=== PATIENT | female | born 1940 | race Caucasian/White ===

== ENCOUNTER 2018-06-12 11:38 | Observation (INO) ==
--- NOTE | 2018-06-12 12:20 | ED ---
HPI General Chief Complaint: Chest Pain Stated Complaint: Chest Complaint/Doctor Sent Time Seen by Provider: 06/12/18 11:53 Source: patient Mode of arrival: ambulatory Limitations: no limitations History of Present Illness HPI narrative: The patient denies any paroxysmal nocturnal dyspnea or orthopnea, has been sleeping in bed on 2 pillows, has not been sleeping in the recliner.The patient is a 78-year-old female who presents to the emergency department via private vehicle for shortness of breath and chest pain. The patient was sent from her inner tube inserter's office, Dr. Loredo, for evaluation of exertional shortness of breath and chest pain. The patient states she has had increasing shortness of breath for the last 3 weeks which is exertional. The patient now notes chest discomfort located over the substernal aspect of her chest, described as pressure and heaviness, that is worse with exertion. The patient was seen by her inner tube inserter administered nitroglycerin sublingual prior to arrival, however, that did not alleviate her symptoms. The patient does have a history of aortic stenosis as well as cardiomyopathy with an EF of approximately 30%. The patient denies any known history of pulmonary embolism or DVT, does have a family history with her mother having a pulmonary embolism. The patient denies any recent hospitalizations, prolonged travel, or recent surgeries. Symptoms are moderate, progressive, and worse with exertion. MD complaint: Reports chest pain STEMI Alert: No Onset (ago): day(s) Duration: intermittent Onset: during rest Pain location: Reports substernal Severity: moderate Severity scale (1-10): 5 Quality: Reports tightness Pain radiation: Reports none Relieving factors: nothing Exacerbating factors: exertion Associated symptoms: Reports dyspnea Treatments prior to arrival chest pain: Reports nitroglycerin Related Data Home Medications Medication Instructions Recorded Confirmed Advil PM 200 mg ONCE HS 06/12/18 06/12/18 Vitamin B-12 1,000 mcg DAILY 06/12/18 06/12/18 fexofenadine [Arely Allergy] 180 mg PO DAILY 06/12/18 06/12/18 melatonin 1 mg HS 06/12/18 06/12/18 omeprazole 20 mg PO DAILY 06/12/18 06/12/18 Allergies Allergy/AdvReac Type Severity Reaction Status Date / Time grass pollen Allergy Mild Sneezing Unverified 06/12/18 11:48 Review of Systems ROS: all other systems reviewed are negative REPLACED BY [facility] Medical History Medical History Asthma (Acute) Surgical History Surgical History H/O sinus surgery (Acute) Hx of cholecystectomy (Acute) Previous back surgery (Acute) Social History Social History Substance History: No History of Abuse Second Hand Smoke Exposure: No Smoking Status: Never smoker How Often Do You Have a Drink Containing Alcohol: Monthly or less Recent Travel in [facility] within the Last 8 Weeks: No Recent Out of Country Travel within the Last 8 Weeks: No Immunization History Tetanus Immunization: Unsure Exam Narrative Exam Narrative: GENERAL: Awake, alert, pleasant 78-year-old female who appears her stated age and is in no acute respiratory distress. SKIN: Focused skin assessment warm/dry. HEAD: Atraumatic. Normocephalic. EYES: Pupils equal and round. No scleral icterus. No injection or drainage. ENT: No nasal bleeding or discharge. Mucous membranes pink and moist. NECK: Trachea midline. No JVD. CARDIOVASCULAR: Regular rate and rhythm. Holosystolic murmur noted. RESPIRATORY: No accessory muscle use. Clear to auscultation. Breath sounds equal bilaterally. GASTROINTESTINAL: Abdomen soft, non-tender, nondistended. MUSCULOSKELETAL: No obvious deformities. No clubbing. No cyanosis. No edema. Calves are soft bilaterally. NEUROLOGICAL: Awake and alert. No obvious cranial nerve deficits. Motor grossly within normal limits. Normal speech. Nonfocal. PSYCHIATRIC: Appropriate mood and affect; insight and judgment normal. Course Initial Documented Vital Signs Temperature 98.9 F 06/12/18 11:42 Pulse Rate 87 06/12/18 11:42 Respiratory Rate 16 06/12/18 11:42 Blood Pressure 199/88 H 06/12/18 11:42 Pulse Oximetry 100 06/12/18 11:42 Last Documented Vital Signs Temperature 98.9 F 06/12/18 11:42 Pulse Rate 81 06/12/18 13:42 Respiratory Rate 17 06/12/18 13:42 Blood Pressure 182/79 H 06/12/18 13:42 Pulse Oximetry 98 06/12/18 13:42 Medical Decision Making [facility] Narrative Medical decision making narrative: IV was established, labs are drawn and sent, and the patient was placed on cardiac telemetry monitoring and continuous pulse oximetry monitoring. EKG was ordered and interpreted. Chest x-ray was obtained. The patient received aspirin and Nitropaste. BNP was sent to lab. Troponin and CPK were sent to lab. The patient's troponin and CPK were unremarkable. BNP was minimally elevated. Chest x-ray reveals no acute pulmonary edema. The patient does have exertional dyspnea, may be ACS versus aortic stenosis with her history. Therefore, patient will be a 23-hour observation to medicine, may benefit from a consultation with her inner tube inserter, Dr. Loredo, as well as echocardiogram to evaluate ejection fraction and aortic stenosis as well as a nuclear medicine myocardial perfusion scan. The patient is comfortable with this plan of care and disposition. The patient's primary physician is Dr. John Mercer, [facility] Medical Screen Exam Complete: Yes Emergency Medical Condition: Yes Differential Diagnosis Differential Diagnosis: Differential diagnosis includes aortic stenosis, cardiomyopathy, congestive heart failure, ACS, STEMI, pulmonary embolism, pleural effusion, pulmonary edema, pneumonia, deconditioning. Lab Data Lab results reviewed: Yes I reviewed the patient's lab results. Result diagrams: 06/12/18 12:10 06/12/18 12:10 Lab Results 06/12/18 06/12/18 06/12/18 Range/Units 12:10 12:10 12:10 WBC 6.7 (4.0-11.0) th/mm3 RBC 4.72 (4.00-5.30) mil/mm3 Hgb 14.0 (11.6-15.3) gm/dL Hct 42.5 (35.0-46.0) % MCV 89.9 (80.0-100.0) fL MCH 29.6 (27.0-34.0) pg MCHC 32.9 (32.0-36.0) % RDW 14.4 (11.6-17.2) % Plt Count 245 (150-450) th/mm3 MPV 8.1 (7.0-11.0) fL Neut % (Auto) 67.2 (16.0-70.0) % Lymph % (Auto) 20.4 (9.0-44.0) % [place] % (Auto) 8.0 (0.0-8.0) % Eos % (Auto) 3.7 (0.0-4.0) % Baso % (Auto) 0.7 (0.0-2.0) % Neut # (Auto) 4.5 (1.8-7.7) th/mm3 Lymph # (Auto) 1.4 (1.0-4.8) th/mm3 [place] # (Auto) 0.5 (0.0-0.9) th/mm3 Eos # (Auto) 0.2 (0.0-0.4) th/mm3 Baso # (Auto) 0.0 (0.0-0.2) th/mm3 WBC Differential . Differential Comment Auto diff final PT 10.1 (9.8-11.6) sec INR 1.0 Ratio APTT 27.7 (23.4-31.7) sec Sodium 142 (136-145) meq/L Potassium 3.8 (3.5-5.1) meq/L Chloride 106 (98-107) meq/L Carbon Dioxide 28.6 (21.0-32.0) meq/L Anion Gap 7 (5-15) meq/L BUN 13 (7-18) mg/dL Creatinine 0.66 (0.50-1.00) mg/dL Estimated GFR 87 L (>89) mL/min Random Glucose 91 (74-106) mg/dL Calcium 8.4 L (8.5-10.1) mg/dL Magnesium 2.1 (1.5-2.5) mg/dL Total Bilirubin 0.3 (0.2-1.0) mg/dL AST 15 (15-37) U/L ALT 24 (10-53) U/L Alkaline Phosphatase 89 (45-117) U/L Total Creatine Kinase 49 (26-192) U/L Troponin I Less than 0.02 L (0.02-0.05) ng/mL B-Natriuretic Peptide (0-100) pg/mL Total Protein 8.1 (6.4-8.2) g/dL Albumin 3.9 (3.4-5.0) g/dL Lipase 130 (73-393) U/L 06/12/18 06/12/18 Range/Units 12:10 12:10 WBC (4.0-11.0) th/mm3 RBC (4.00-5.30) mil/mm3 Hgb (11.6-15.3) gm/dL Hct (35.0-46.0) % MCV (80.0-100.0) fL MCH (27.0-34.0) pg MCHC (32.0-36.0) % RDW (11.6-17.2) % Plt Count (150-450) th/mm3 MPV (7.0-11.0) fL Neut % (Auto) (16.0-70.0) % Lymph % (Auto) (9.0-44.0) % [place] % (Auto) (0.0-8.0) % Eos % (Auto) (0.0-4.0) % Baso % (Auto) (0.0-2.0) % Neut # (Auto) (1.8-7.7) th/mm3 Lymph # (Auto) (1.0-4.8) th/mm3 [place] # (Auto) (0.0-0.9) th/mm3 Eos # (Auto) (0.0-0.4) th/mm3 Baso # (Auto) (0.0-0.2) th/mm3 WBC Differential Differential Comment PT (9.8-11.6) sec INR Ratio APTT (23.4-31.7) sec Sodium (136-145) meq/L Potassium (3.5-5.1) meq/L Chloride (98-107) meq/L Carbon Dioxide (21.0-32.0) meq/L Anion Gap (5-15) meq/L BUN (7-18) mg/dL Creatinine (0.50-1.00) mg/dL Estimated GFR (>89) mL/min Random Glucose (74-106) mg/dL Calcium (8.5-10.1) mg/dL Magnesium Cancelled (1.5-2.5) mg/dL Total Bilirubin (0.2-1.0) mg/dL AST (15-37) U/L ALT (10-53) U/L Alkaline Phosphatase (45-117) U/L Total Creatine Kinase (26-192) U/L Troponin I (0.02-0.05) ng/mL B-Natriuretic Peptide 243 H (0-100) pg/mL Total Protein (6.4-8.2) g/dL Albumin (3.4-5.0) g/dL Lipase (73-393) U/L Imaging Data Radiologist's impression: Chest X-Ray 06/12/18 12:11 CONCLUSION: No acute cardiopulmonary disease. ECG Data EKG Prior to Arrival: No Attestation: I personally reviewed and interpreted this ECG as follows: Interpretation: EKG reveals sinus rhythm with a rate 86. Left bundle branch block. Compared to EKG tracing on June 12, 2016, left bundle branch block is not acute. Discharge Plan Discharge Disposition Patient Disposition: 30 Still Patient Discharge Condition Condition: Stable Discharge Details Diagnosis: Exertional dyspnea, Chest pain, Aortic stenosis Physicians Team ED Provider: Reddy Webster Primary Care Provider: John Mercer Rxs /Orders / Referrals /Forms Prescriptions: No Action fexofenadine [Arely Allergy] 180 mg Tablet 180 mg PO DAILY RF: 0 Vitamin B-12 1,000 mcg DAILY RF: 0 Advil PM 200 mg ONCE HS RF: 0 melatonin 1 mg Tablet 1 mg HS RF: 0 omeprazole 20 mg Capsule,Delayed Release(Dr/Ec) 20 mg PO DAILY RF: 0 Discharge Instructions Patient Printed Instructions: Chest Pain (ED) Discharge Interventions Interventions: Vital Signs Last Done: 06/12/18 11:48 Status ED Status: Admitted Observation Patient
--- NOTE | 2018-06-12 12:40 | XR ---
EXAM DATE: 06/12/2018 12:31 PM EST AGE/SEX: 78 years / Female INDICATIONS: Chest pain and tightness. CLINICAL DATA: This is the patient's initial encounter. Patient reports that signs and symptoms have been present for 1 day and indicates a pain score of 6/10. MEDICAL/SURGICAL HISTORY: . Gastroesophageal reflux disease. Asthma. Arthritis. Left femur frac ture. . Cholecystectomy. Left femur repair. Cataract removal. Sinus surgery. Lipoma removal. COMPARISON: [facility] [place], CHEST PA & LAT, 06/14/2016. . FINDINGS: Lungs are clear. Slight cardiomegaly seen. Thoracic scoliosis has not changed. CONCLUSION: No acute cardiopulmonary disease. Electronically signed by: Dayami Gamez MD 06/12/2018 12:39 PM EST
[2018-06-12 12:42] LABS: Baso % (Auto) 0.7 % (0.0-2.0); Eos # (Auto) 0.2 th/mm3 (0.0-0.4); Eos % (Auto) 3.7 % (0.0-4.0); Hematocrit 42.5 % (35.0-46.0); Lymph # (Auto) 1.4 th/mm3 (1.0-4.8); Lymph % (Auto) 20.4 % (9.0-44.0); Mean Corpuscular HGB Conc 32.9 % (32.0-36.0); Mean Corpuscular Hemoglobin 29.6 pg (27.0-34.0); Mean Corpuscular Volume 89.9 fL (80.0-100.0); Mean Platelet Volume 8.1 fL (7.0-11.0); Mono # (Auto) 0.5 th/mm3 (0.0-0.9); Neut # (Auto) 4.5 th/mm3 (1.8-7.7); Neut % (Auto) 67.2 % (16.0-70.0); Platelet Count 245 th/mm3 (150-450); Red Blood Count 4.72 mil/mm3 (4.00-5.30); Red Cell Distribution Width 14.4 % (11.6-17.2); White Blood Count 6.7 th/mm3 (4.0-11.0)
[2018-06-12 12:46] LABS: Activated Partial Thrombo Time 27.7 sec (23.4-31.7); Prothrombin Time 10.1 sec (9.8-11.6)
[2018-06-12 12:48] LABS: Alanine Aminotransferase 24 U/L (10-53); Albumin 3.9 g/dL (3.4-5.0); Anion Gap 7 meq/L (5-15); Aspartate Aminotransferase 15 U/L (15-37); Blood Urea Nitrogen 13 mg/dL (7-18); Calcium 8.4 mg/dL (8.5-10.1); Carbon Dioxide 28.6 meq/L (21.0-32.0); Chloride 106 meq/L (98-107); Glomerular Filtration Rate 87 mL/min (>89); Glucose,Random 91 mg/dL (74-106); Lipase 130 U/L (73-393); Magnesium 2.1 mg/dL (1.5-2.5); Potassium 3.8 meq/L (3.5-5.1); Sodium 142 meq/L (136-145)
[2018-06-12 12:52] LABS: Alkaline Phosphatase 89 U/L (45-117); Total Protein 8.1 g/dL (6.4-8.2)
[2018-06-12 12:54] LABS: Creatine Kinase 49 U/L (26-192)
--- NOTE | 2018-06-12 15:26 | P.HP ---
History of Present Illness Primary Care Physician: John Mercer MD History of Present Illness: 78-year-old white female being admitted for exertional dyspnea, referred to the emergency department by her patent clerk today. Case discussed with ER physician. Patient was in her usual state of health until about 1 month ago when she had a bout of intense lightheadedness at [place] when she spun around to talk to someone. Since then she has had some lingering lightheadedness here and there but more concerning she has had exertional dyspnea which has progressed in intensity. Says she used to be able to walk down to her driveway now she is unable to do that without having to stop to catch her breath. She even thinks that she has conversational dyspnea although she does not appear to have any difficulty talking to me at this time at the bedside. She said she went to her primary care doctor about a week and a half after the initial incident and had an echocardiogram performed the results of which she does not know in detail. She also reports having ultrasound of her neck done which apparently was okay as well. She saw cardiology for the first time today and was instructed to come to the emergency department in light of her worsening exertional dyspnea. Patient reports having a pressure-like feeling which she describes as also burning sensation but says it's no "painful." Says that she has a mild pain very intermittent only over the left pectoral region which worsens with deep inspiration. Patient was seen by patent clerk today and was advised to proceed to the emergency department, for possible acute ischemic workup. In the emergency department chest x-ray performed which which I independently reviewed which demonstrated scoliosis but no acute findings in the lung regalado. BNP is only in the 200s. Troponins are negative. EKG which I independently reviewed shows no acute findings concerning for ischemia or infarction, only left bundle. Review of Systems All other systems reviewed negative except as stated in HPI PMFSH - History History Provided By: Patient - Medical History Medical History: Medical History (Last Reviewed 06/12/18 @ 15:29 by Humble Gonzalez MD) Asthma - Surgical History Surgical History: Surgical History (Last Reviewed 06/12/18 @ 15:29 by Humble Gonzalez MD) H/O sinus surgery Hx of cholecystectomy Previous back surgery - Family History Family History: Family History (Last Updated 06/12/18 @ 15:29 by Humble Gonzalez MD) Mother DVT (deep venous thrombosis) - Social History I have reviewed the patient's Social History: Yes - Tobacco History Second Hand Smoke Exposure: No Smoking Status: Never smoker - Alcohol History How Often Do You Have a Drink Containing Alcohol: Monthly or less - Substance Use History Substance History: No History of Abuse - Travel History Recent Travel in the [place] Within the Last 8 Weeks: No Recent Travel Out of the Country Within the Last 8 Weeks: No - Immunization History Tetanus Immunization: Unsure Medications and Allergies Active Medications: Active Medications Sodium Chloride (Ns Flush) 2 ml IV.FLUSH UNSCH PRN PRN Reason: FLUSH AFTER USING IV ACCESS Allergies Allergy/AdvReac Type Severity Reaction Status Date / Time grass pollen Allergy Mild Sneezing Unverified 06/12/18 11:48 Home Medications Medication Instructions Recorded Confirmed Type Advil PM 200 mg ONCE HS 06/12/18 06/12/18 History Vitamin B-12 1,000 mcg DAILY 06/12/18 06/12/18 History fexofenadine [Arely Allergy] 180 mg PO DAILY 06/12/18 06/12/18 History melatonin 1 mg HS 06/12/18 06/12/18 History omeprazole 20 mg PO DAILY 06/12/18 06/12/18 History Exam Vital signs: Vital Signs 06/12/18 11:42 06/12/18 11:48 06/12/18 12:11 Temperature 98.9 F Pulse Rate 87 87 82 Respiratory Rate 16 18 Blood Pressure 199/88 H 211/98 H 191/84 H Pulse Oximetry 100 100 98 06/12/18 13:42 Temperature Pulse Rate 81 Respiratory Rate 17 Blood Pressure 182/79 H Pulse Oximetry 98 Intake & Output 06/11/18 06/12/18 06/12/18 18:59 06:59 18:59 Weight 78.925 kg Narrative: VS: afebrile GENERAL: Well-nourished elderly female, reclining in bed, no acute distress SKIN: Warm and dry. EYES: No scleral icterus. No injection or drainage. ENT: No nasal bleeding or discharge. Mucous membranes pink and moist. CARDIOVASCULAR: Regular rate and rhythm. no murmurs RESPIRATORY: No accessory muscle use. Clear to auscultation. Breath sounds equal bilaterally. GASTROINTESTINAL: Abdomen soft, non-tender, nondistended. Extremities: No clubbing, cyanosis, or edema. No obvious deformities. MUSCULOSKELETAL: adequate muscle bulk and tone for age and habitus. Has some left upper pectoral tenderness to palpation which he affirms is the only pain aspect she has had in her historical presentation. NEUROLOGICAL: Awake and alert. No obvious cranial nerve deficits. No facial droop nor slurred speech noted. PSYCHIATRIC: Appropriate mood and affect; insight and judgment normal. Results - Labs CBC & Chem 7: 06/12/18 12:10 06/12/18 12:10 Labs: Laboratory Results - last 24 hr 06/12/18 06/12/18 06/12/18 12:10 12:10 12:10 WBC 6.7 RBC 4.72 Hgb 14.0 Hct 42.5 MCV 89.9 MCH 29.6 MCHC 32.9 RDW 14.4 Plt Count 245 MPV 8.1 Neut % (Auto) 67.2 Lymph % (Auto) 20.4 [place] % (Auto) 8.0 Eos % (Auto) 3.7 Baso % (Auto) 0.7 Neut # (Auto) 4.5 Lymph # (Auto) 1.4 [place] # (Auto) 0.5 Eos # (Auto) 0.2 Baso # (Auto) 0.0 WBC Differential . Differential Comment Auto diff final PT 10.1 INR 1.0 APTT 27.7 Sodium 142 Potassium 3.8 Chloride 106 Carbon Dioxide 28.6 Anion Gap 7 BUN 13 Creatinine 0.66 Estimated GFR 87 L Random Glucose 91 Calcium 8.4 L Magnesium 2.1 Total Bilirubin 0.3 AST 15 ALT 24 Alkaline Phosphatase 89 Total Creatine Kinase 49 Troponin I Less than 0.02 L B-Natriuretic Peptide Total Protein 8.1 Albumin 3.9 Lipase 130 06/12/18 06/12/18 12:10 12:10 WBC RBC Hgb Hct MCV MCH MCHC RDW Plt Count MPV Neut % (Auto) Lymph % (Auto) [place] % (Auto) Eos % (Auto) Baso % (Auto) Neut # (Auto) Lymph # (Auto) [place] # (Auto) Eos # (Auto) Baso # (Auto) WBC Differential Differential Comment PT INR APTT Sodium Potassium Chloride Carbon Dioxide Anion Gap BUN Creatinine Estimated GFR Random Glucose Calcium Magnesium Cancelled Total Bilirubin AST ALT Alkaline Phosphatase Total Creatine Kinase Troponin I B-Natriuretic Peptide 243 H Total Protein Albumin Lipase - Imaging Impressions Chest X-Ray 06/12/18 12:11 CONCLUSION: No acute cardiopulmonary disease. Caprini VTE Risk Assessment Caprini VTE Risk Assessment: Moderate/High Risk (score >= 2) Caprini Risk Assessment Model: Point Value = 1 Point Value = 2 Point Value = 3 Point Value = 5 Age 41-60 Minor surgery BMI > 25 kg/m2 Swollen legs Varicose veins or History of unexplained or recurrent spontaneous Oral contraceptives or hormone replacement Sepsis (< 1 month) Serious lung disease, including pneumonia (< 1 month) Abnormal pulmonary function Acute myocardial infarction Congestive heart failure (< 1 month) History of inflammatory bowel disease Medical patient at bed rest Age 61-74 Arthroscopic surgery Major open surgery (> 45 min) Laparoscopic surgery (> 45 min) Malignancy Confined to bed (> 72 hours) Immobilizing plaster cast Central venous access Age >= 75 History of VTE Family history of VTE Factor V Leiden Prothrombin 10066L Lupus anticoagulant Anticardiolipin antibodies Elevated serum homocysteine Heparin-induced thrombocytopenia Other congenital or acquired thrombophilia Stroke (< 1 month) Elective arthroplasty Hip, pelvis, or leg fracture Acute spinal cord injury (< 1 month) Prophylaxis Regimen: Total Risk Factor Score Risk Level Prophylaxis Regimen 0-1 Low Early ambulation 2 Moderate Order ONE of the following: *Sequential Compression Device (SCD) *Heparin 5000 units SQ BID 3-4 Higher Order ONE of the following medications: *Heparin 5000 units SQ TID *Enoxaparin/Lovenox 40 mg SQ daily (WT < 150 kg, CrCl > 30 mL/min) *Enoxaparin/Lovenox 30 mg SQ daily (WT < 150 kg, CrCl > 10-29 mL/min) *Enoxaparin/Lovenox 30 mg SQ BID (WT < 150 kg, CrCl > 30 mL/min) AND/OR *Sequential Compression Device (SCD) 5 or more Highest Order ONE of the following medications: *Heparin 5000 units SQ TID (Preferred with Epidurals) *Enoxaparin/Lovenox 40 mg SQ daily (WT < 150 kg, CrCl > 30 mL/min) *Enoxaparin/Lovenox 30 mg SQ daily (WT < 150 kg, CrCl > 10-29 mL/min) *Enoxaparin/Lovenox 30 mg SQ BID (WT < 150 kg, CrCl > 30 mL/min) AND *Sequential Compression Device (SCD) Assessment and Plan - Plan 78-year-old white female being admitted for exertional dyspnea. Hemodynamically stable upon admission Exertional dyspnea Possibly cardiac in origin, echo ordered per cardiology's request - lipid panel -Cardiology being consulted, will defer ischemic workup to them whether they would proceed with a stress test versus cardiac catheterization versus conservative medical management We will start aspirin -Trend troponins, maintain on telemetry Heparin
[2018-06-12 17:30] LABS: Chol/HDL Ratio 2.88 Ratio; HDL Cholesterol 76.9 mg/dL (40.0-60.0)
[2018-06-12] MEDS ORDERED: MELATONIN 1 MG PO SCH (21:00)
[2018-06-12] MEDS: Heparin - SQ 10,000 UNITS/ML Vial SQ SCH (22:19)
[2018-06-13] MEDS: Heparin - SQ 10,000 UNITS/ML Vial SQ SCH ×3 (07:48→21:18)
[2018-06-13] MEDS ORDERED: Acetaminophen 325 MG Tablet PO PRN (09:12)
--- NOTE | 2018-06-13 09:44 | P.PNCA ---
Subjective Interval history: Pleasant 78-year-old female who was seen in our office yesterday for new patient evaluation for complaints of chest tightness and shortness of breath. Patient reports that approximately 1 month ago while at [employer] she experienced an episode of extreme dizziness and loss of vision followed by shortness of breath which is progressively gotten worse over the past month. She reports that Monday evening she started noticing tightness in her chest, upon evaluation in office yesterday patient reported that her chest discomfort/ tightness was getting worse and was radiating to her arms and associated with dyspnea. She was advised to go to ER to rule out ND and pulmonary embolus. Patient had an echocardiogram completed at [facility] that showed a reduced ejection fraction 30-35% and moderate aortic stenosis. Upon examination today patient reports that her chest heaviness/discomfort has improved, she continues to have shortness of breath. She reports having a headache this morning and not sleeping well last night. Troponins are negative x3, EKG reviewed left bundle branch block noted, BNP mildly elevated. Will check d-dimer. Medications and Allergies Allergies Allergy/AdvReac Type Severity Reaction Status Date / Time grass pollen Allergy Mild Sneezing Unverified 06/12/18 11:48 Home Medications Medication Instructions Recorded Confirmed Type Advil PM 200 mg ONCE HS 06/12/18 06/12/18 History Vitamin B-12 1,000 mcg DAILY 06/12/18 06/12/18 History fexofenadine [Arely Allergy] 180 mg PO DAILY 06/12/18 06/12/18 History melatonin 1 mg HS 06/12/18 06/12/18 History omeprazole 20 mg PO DAILY 06/12/18 06/12/18 History Active Medications: Active Medications Acetaminophen (Tylenol) 650 mg PO Q4H PRN PRN Reason: HEADACHE Aspirin (Ecotrin) 81 mg PO DAILY [facility] Atorvastatin Calcium (Lipitor) 20 mg PO HS [facility] Carvedilol (Coreg) 3.125 mg PO BID [facility] Heparin Sodium (Porcine) (Heparin Inj) 5,000 units SQ Q8HR [facility] Last Admin: 06/13/18 07:48 Dose: 5,000 units Lisinopril (Prinivil) 2.5 mg PO DAILY [facility] Pantoprazole Sodium (Protonix) 20 mg PO DAILY [facility] Sodium Chloride (Ns Flush) 2 ml IV.FLUSH UNSCH PRN PRN Reason: FLUSH AFTER USING IV ACCESS Physical Exam Vital signs: Vital Signs 06/12/18 11:42 06/12/18 11:48 06/12/18 12:11 Temperature 98.9 F Pulse Rate 87 87 82 Respiratory Rate 16 18 Blood Pressure 199/88 H 211/98 H 191/84 H Pulse Oximetry 100 100 98 06/12/18 13:42 06/12/18 15:48 06/12/18 16:02 Temperature Pulse Rate 81 88 90 Respiratory Rate 17 19 Blood Pressure 182/79 H 154/74 H 154/74 H Pulse Oximetry 98 97 06/12/18 17:58 06/12/18 18:08 06/12/18 19:26 Temperature 98.4 F 98.6 F Pulse Rate 87 92 H 92 H Respiratory Rate 18 17 14 Blood Pressure 148/72 H 183/82 H 147/67 H Pulse Oximetry 97 97 06/13/18 00:00 06/13/18 04:00 06/13/18 07:34 Temperature 98.3 F 98.3 F 98.6 F Pulse Rate 86 88 80 Respiratory Rate 17 17 12 Blood Pressure 128/62 158/68 H 161/72 H Pulse Oximetry 97 95 96 Intake & Output 06/12/18 06/13/18 06/13/18 18:59 06:59 18:59 Weight 78.925 kg 78.92 kg Other: # Voids 1 Weight On Admission 78.92 kg - Constitutional no acute distress, cooperative - Routine HEENT Exam Head: Present: normocephalic, atraumatic Eye: Present: EOMI, PERRL, normal accommodation ENT: Present: mucous membranes moist - Routine Respiratory Exam Present: CTA bilaterally - Routine Cardiovascular Exam Present: RRR - Routine Abdominal Exam Present: soft - Routine Extremities Exam Comments: no edema - Routine Skin Exam Present: intact - Routine Neurological Exam Present: alert, oriented X3 - Detailed Neurological Exam: Coma Scale Eye Opening: Spontaneous Verbal Response: Oriented Motor Response: Obey commands Lou Coma Scale Total: 15 - Routine Psychiatric Exam Present: normal affect Results 06/12/18 12:10 06/12/18 12:10 Cardiac Enzymes 06/12/18 06/12/18 06/12/18 Range/Units 12:10 12:10 17:50 AST 15 (15-37) U/L Troponin I Less than 0.02 L Less than 0.02 L (0.02-0.05) ng/mL B-Natriuretic Peptide 243 H (0-100) pg/mL 06/12/18 Range/Units 23:42 AST (15-37) U/L Troponin I Less than 0.02 L (0.02-0.05) ng/mL B-Natriuretic Peptide (0-100) pg/mL Coagulation 06/12/18 06/12/18 Range/Units 12:10 12:10 PT 10.1 (9.8-11.6) sec APTT 27.7 (23.4-31.7) sec B-Natriuretic Peptide 243 H (0-100) pg/mL Lipids 06/12/18 Range/Units 12:10 Triglycerides 179 H (42-150) mg/dL Cholesterol 222 H (120-200) mg/dL HDL Cholesterol 76.9 H (40.0-60.0) mg/dL Cholesterol/HDL Ratio 2.88 Ratio CBC 06/12/18 Range/Units 12:10 WBC 6.7 (4.0-11.0) th/mm3 RBC 4.72 (4.00-5.30) mil/mm3 Hgb 14.0 (11.6-15.3) gm/dL Hct 42.5 (35.0-46.0) % Plt Count 245 (150-450) th/mm3 Neut # (Auto) 4.5 (1.8-7.7) th/mm3 Lymph # (Auto) 1.4 (1.0-4.8) th/mm3 Harmon # (Auto) 0.5 (0.0-0.9) th/mm3 Eos # (Auto) 0.2 (0.0-0.4) th/mm3 Baso # (Auto) 0.0 (0.0-0.2) th/mm3 Comprehensive Metabolic Panel 06/12/18 Range/Units 12:10 Sodium 142 (136-145) meq/L Potassium 3.8 (3.5-5.1) meq/L Chloride 106 (98-107) meq/L Carbon Dioxide 28.6 (21.0-32.0) meq/L BUN 13 (7-18) mg/dL Creatinine 0.66 (0.50-1.00) mg/dL Calcium 8.4 L (8.5-10.1) mg/dL AST 15 (15-37) U/L ALT 24 (10-53) U/L Alkaline Phosphatase 89 (45-117) U/L Total Protein 8.1 (6.4-8.2) g/dL Albumin 3.9 (3.4-5.0) g/dL Intake and Output 06/12/18 06/13/18 06/13/18 22:59 06:59 14:59 Other: # Voids 1 Weight 78.92 kg 78.92 kg Weight On Admission 78.92 kg - Imaging and Cardiology Imaging: Impressions Chest X-Ray 06/12/18 12:11 CONCLUSION: No acute cardiopulmonary disease. Assessment and Plan - Plan Assessment Chest pain Shortness of breath Cardiomyopathy Aortic stenosis Dizziness/loss of vision Hypertension Hyperlipidemia Plan -Troponins negative x3, chest discomfort improved at this a.m. Will consider stress test outpatient. -D-dimer ordered to rule out PE, BN P mildly elevated will start on Lasix 20 mg p.o. daily. -Questionable new cardiomyopathy noted on recent echocardiogram at [facility] [place], will start on beta-sangeetha and BIJAL inhibitor. Will order repeat echo -Moderate aortic stenosis noted on echo at [facility] [place], repeat echo ordered today. -Continues to have dizziness, also had episode of loss of vision, reports primary care physician was worried about possible TIA, patient started on baby aspirin, will also order telemetry and consult neurology for evaluation. -Coreg and lisinopril started, will titrate up as needed to control BP -Will start on lipitor. The patient was seen and evaluated by Dr. Mitchell who participated in care management decision making. The exam, history, and the medical decision-making described in the above note were completed with the assistance of the mid-level provider. I reviewed and agree with the findings presented. I attest that I had a [id number] encounter with the patient on the same day, and personally performed and documented my assessment and findings in the medical record. Has congestive heart failure and cardiomyopathy and . Discussed Condition With: HONEY
[2018-06-13] MEDS: Lisinopril 5 MG Tablet PO SCH (09:58)
[2018-06-13] MEDS: Pantoprazole Sodium 20 MG DR Tablet PO SCH (09:58)
[2018-06-13] MEDS: Furosemide 20 MG Tablet PO SCH (09:59)
--- NOTE | 2018-06-13 11:29 | MB ---
cc: Osvaldo Barber MD DATE: 06/13/2018 HISTORY OF PRESENT ILLNESS: A 78-year-old right-handed woman with borderline hypercholesterolemia, cardiomyopathy. She tells me EF of 30%, one migraine over the course of her life, once-a-week headache, bifrontal, who, about a month ago, was not sure if somebody had called her. She looked around quickly and felt a swirling white vision jacquard loom card changer her vision for about 2 minutes, and since that time, she has been dizzy. No falls. She has had some chest pain and burning pain in her chest, so she came in the hospital. No asymmetrical weakness or numbness. SOCIAL HISTORY: Not a smoker or drinker. Lives with her friend. FAMILY HISTORY: Negative for cancer or seizure. Positive for stroke in her mother. Positive for CHF and pacemaker in the family. REVIEW OF SYSTEMS: She denies any history of hypertension, diabetes, vertigo, A-Fib, Coumadin, bypass, stent, renal, hepatic or pulmonary disease, thyroid disease, lupus, ulcer, cancer, seizure, stroke. MEDICATIONS: She does not usually take an aspirin a day. She is on omeprazole, melatonin. ALLERGIES: Grass. PAST MEDICAL HISTORY: As above, also history of LVH, left bundle branch block, hemiblock. Carotid ultrasound negative in 05/2018. EF 30% to 35%, moderate aortic stenosis, shortness of breath. She saw Dr. Mitchell yesterday. He noted a history of asthma. PHYSICAL EXAMINATION: VITAL SIGNS: Sinus rhythm. Blood pressure is 199/88, even 211/98, now down to 161/72. NECK: There were no carotid bruits. HEART: Regular rate and rhythm. I did not detect a murmur. NEUROLOGIC: Pupils are equal. Visual regalado full. Extraocular movements intact without nystagmus. Face is symmetric with normal sensation. Tongue was midline. Hearing was diminished to finger rub bilaterally. She has a history of hearing loss. Hallpike maneuver: She felt a little dizzy with head to the right, but no nystagmus, no major vertigo. There was no drift. She has normal strength in upper and lower extremities bilaterally. DTRs are absent throughout. Toes are downgoing bilaterally. Pinprick was intact throughout, except feels like the bottom of her feet is a little numb. She is not ataxic on [id number] or [id number]. She has a normal gait. Romberg is a little bit unsteady. Speech is fluent. She is not aphasic. Gives a good history. LABORATORY DATA: CBC is normal. Basic metabolic profile essentially normal. LFTs normal. Troponin negative. BNP 243. LDL cholesterol 109. Lipase normal. Coags normal. IMPRESSION AND PLAN: Concerning for that vision change a month ago and dizziness since, that she could have had an infarct in the posterior circulation. We will check an MRI of the brain, MRA neck and [place] of [place]. Dizziness is probably due to a mild right peripheral vestibulopathy. Otherwise, I thought she looked well neurologically. I will be following her within the hospital. For now, she has been put on 81 of aspirin a day, which is fine. As far as her chest pain goes, I defer to the medical team for that. I note she does have some headaches about once a week, and she probably has a mild migraine problem and whether that vision change could have been a complicated migraine is unclear. I defer to the medical team on starting a statin or not with her elevated LDL cholesterol. MD GREGORIO Hernandez/kb , 10:53 AM , 11:02 AM
--- NOTE | 2018-06-13 11:32 | P.PNIM ---
Subjective Interval history: Patient reports she is feeling better today. She is still experiencing mild lightheadedness. Denies chest pain. Physical Exam Vital signs: Vital Signs 06/12/18 11:42 06/12/18 11:48 06/12/18 12:11 Temperature 98.9 F Pulse Rate 87 87 82 Respiratory Rate 16 18 Blood Pressure 199/88 H 211/98 H 191/84 H Pulse Oximetry 100 100 98 06/12/18 13:42 06/12/18 15:48 06/12/18 16:02 Temperature Pulse Rate 81 88 90 Respiratory Rate 17 19 Blood Pressure 182/79 H 154/74 H 154/74 H Pulse Oximetry 98 97 06/12/18 17:58 06/12/18 18:08 06/12/18 19:26 Temperature 98.4 F 98.6 F Pulse Rate 87 92 H 92 H Respiratory Rate 18 17 14 Blood Pressure 148/72 H 183/82 H 147/67 H Pulse Oximetry 97 97 06/13/18 00:00 06/13/18 04:00 06/13/18 07:34 Temperature 98.3 F 98.3 F 98.6 F Pulse Rate 86 88 80 Respiratory Rate 17 17 12 Blood Pressure 128/62 158/68 H 161/72 H Pulse Oximetry 97 95 96 06/13/18 08:00 Temperature Pulse Rate Respiratory Rate Blood Pressure Pulse Oximetry 96 Intake & Output 06/12/18 06/13/18 06/13/18 18:59 06:59 18:59 Weight 78.925 kg 78.92 kg Other: # Voids 1 Date of Last Bowel Movement 06/13/18 Weight On Admission 78.92 kg Narrative: GENERAL: This is a well-nourished, well-developed patient, in no apparent distress. CARDIOVASCULAR: Normal rate and regular rhythm without murmurs, gallops, or rubs. RESPIRATORY: Good respiratory efforts. Breath sounds equal and clear to auscultation bilaterally. GASTROINTESTINAL: Abdomen soft, non-tender, non-distended. Normal active bowel sounds MUSCULOSKELETAL: Extremities without cyanosis, or edema. NEURO: Alert & Oriented x4 to person, place, time, situation. Moves all ext x4 PSYCH: Appropriate mood and affect. Results - Labs CBC & Chem 7: 06/12/18 12:10 06/12/18 12:10 Laboratory Results - last 24 hr 06/12/18 06/12/18 06/12/18 12:10 12:10 12:10 WBC 6.7 RBC 4.72 Hgb 14.0 Hct 42.5 MCV 89.9 MCH 29.6 MCHC 32.9 RDW 14.4 Plt Count 245 MPV 8.1 Neut % (Auto) 67.2 Lymph % (Auto) 20.4 [place]imble % (Auto) 8.0 Eos % (Auto) 3.7 Baso % (Auto) 0.7 Neut # (Auto) 4.5 Lymph # (Auto) 1.4 [place] # (Auto) 0.5 Eos # (Auto) 0.2 Baso # (Auto) 0.0 WBC Differential . Differential Comment Auto diff final PT 10.1 INR 1.0 APTT 27.7 D-Dimer Quant (PE/DVT) Sodium 142 Potassium 3.8 Chloride 106 Carbon Dioxide 28.6 Anion Gap 7 BUN 13 Creatinine 0.66 Estimated GFR 87 L Random Glucose 91 Calcium 8.4 L Magnesium 2.1 Total Bilirubin 0.3 AST 15 ALT 24 Alkaline Phosphatase 89 Total Creatine Kinase 49 Troponin I Less than 0.02 L B-Natriuretic Peptide Total Protein 8.1 Albumin 3.9 Triglycerides Cholesterol LDL Cholesterol, Calc HDL Cholesterol Cholesterol/HDL Ratio Lipase 130 06/12/18 06/12/18 06/12/18 12:10 12:10 12:10 WBC RBC Hgb Hct MCV MCH MCHC RDW Plt Count MPV Neut % (Auto) Lymph % (Auto) [place] % (Auto) Eos % (Auto) Baso % (Auto) Neut # (Auto) Lymph # (Auto) [place] # (Auto) Eos # (Auto) Baso # (Auto) WBC Differential Differential Comment PT INR APTT D-Dimer Quant (PE/DVT) Sodium Potassium Chloride Carbon Dioxide Anion Gap BUN Creatinine Estimated GFR Random Glucose Calcium Magnesium Cancelled Total Bilirubin AST ALT Alkaline Phosphatase Total Creatine Kinase Troponin I B-Natriuretic Peptide 243 H Total Protein Albumin Triglycerides 179 H Cholesterol 222 H LDL Cholesterol, Calc 109 H HDL Cholesterol 76.9 H Cholesterol/HDL Ratio 2.88 Lipase 06/12/18 06/12/18 06/13/18 17:50 23:42 10:29 WBC RBC Hgb Hct MCV MCH MCHC RDW Plt Count MPV Neut % (Auto) Lymph % (Auto) [place] % (Auto) Eos % (Auto) Baso % (Auto) Neut # (Auto) Lymph # (Auto) [place]imble # (Auto) Eos # (Auto) Baso # (Auto) WBC Differential Differential Comment PT INR APTT D-Dimer Quant (PE/DVT) 0.50 Sodium Potassium Chloride Carbon Dioxide Anion Gap BUN Creatinine Estimated GFR Random Glucose Calcium Magnesium Total Bilirubin AST ALT Alkaline Phosphatase Total Creatine Kinase Troponin I Less than 0.02 L Less than 0.02 L B-Natriuretic Peptide Total Protein Albumin Triglycerides Cholesterol LDL Cholesterol, Calc HDL Cholesterol Cholesterol/HDL Ratio Lipase - Imaging Impressions Chest X-Ray 06/12/18 12:11 CONCLUSION: No acute cardiopulmonary disease. Assessment and Plan - Plan 78-year-old white female being admitted for exertional dyspnea. Hemodynamically stable upon admission. Patient also reported ongoing lightheadedness. Exertional dyspnea Possibly cardiac in origin, echo ordered per cardiology's request - lipid panel -Cardiology following. 2D echo pending. Patient started on Lasix 20 mg daily for probable cardiomyopathy. She was started on Coreg and lisinopril as well. -Continue aspirin. Cardiology will consider stress test outpatient. -D-dimer is negative. Hyperlipidemia: -We will start statin. Dizziness: Patient reports this initially started after she she suddenly turned her head and had an episode of visual disturbances. -Appreciate neurology input. MRI of the brain, MRA of the neck and [place] of Jesus ordered. GI prophylaxis: Stool softener PRN constipation. DVT PPx: Heparin
--- NOTE | 2018-06-13 13:14 | ECHRPT ---
Indication: SHORTNESS OF BREATH CONCLUSIONS The left ventricular systolic function is moderately to severely reduced with an estimated ejection fraction in the range of 30-35%. Normal left ventricular size. Wall thickness is normal. Trace mitral valve regurgitation. Mild aortic valve stenosis. BP: / HR: Rhythm: Sinus MEASUREMENTS (Male / Female) Normal Values Technical Quality:Poor 2D ECHO LV Diastolic Diameter PLAX 4.7 cm 4.2 - 5.9 / 3.9 - 5.3 cm LV Systolic Diameter PLAX 4.0 cm IVS Diastolic Thickness 0.9 cm 0.6 - 1.0 / 0.6 - 0.9 cm LVPW Diastolic Thickness 0.9 cm 0.6 - 1.0 / 0.6 - 0.9 cm LV Relative Wall Thickness 0.4 LVOT Diameter 1.5 cm LV Ejection Fraction MOD 4C 31.5 % LV Ejection Fraction 4C AL 32.9 % M-MODE Aortic Root Diameter MM 2.1 cm LA Systolic Diameter MM 2.8 cm LA Ao Ratio MM 1.3 AV Cusp Separation MM 1.6 cm DOPPLER AV Peak Velocity 233.0 cm/s AV Peak Gradient 21.7 mmHg AV Mean Gradient 13.0 mmHg AV Velocity Time Integral 42.9 cm LVOT Peak Velocity 105.0 cm/s LVOT Peak Gradient 4.4 mmHg LVOT Velocity Time Integral 19.1 cm AV Area Cont Eq vti 0.8 cm AV Area Cont Eq pk 0.8 cm MV Area PHT 4.9 cm Mitral E Point Velocity 72.6 cm/s Mitral A Point Velocity 120.0 cm/s Mitral E to A Ratio 0.6 LV E' Lateral Velocity 5.7 cm/s Mitral E to LV E' Lateral Ratio 12.8 LV E' Septal Velocity 4.5 cm/s Mitral E to LV E' Septal Ratio 16.2 PV Peak Velocity 132.0 cm/s PV Peak Gradient 7.0 mmHg FINDINGS LEFT VENTRICLE The left ventricular systolic function is moderately to severely reduced with an estimated ejection fraction in the range of 30-35%. Normal left ventricular size. Wall thickness is normal. RIGHT VENTRICLE Normal right ventricular size and systolic function. LEFT ATRIUM The left atrial size is normal. RIGHT ATRIUM The right atrial size is normal. ATRIAL SEPTUM Normal atrial septal thickness without atrial level shunting by limited color doppler interrogation. AORTA The aortic root and proximal ascending aorta are normal in size on limited imaging. MITRAL VALVE Structurally normal mitral valve. Trace mitral valve regurgitation. AORTIC VALVE Trileaflet aortic valve. Mild aortic valve stenosis. Aortic valve area is 0.79 cm. Aortic valve mean gradient is 13 mmHg. TRICUSPID VALVE Structurally normal tricuspid valve. No tricuspid valve stenosis or regurgitation. PULMONARY VALVE The pulmonary valve is not well visualized. VESSELS The inferior vena cava is normal in size. PERICARDIUM No pericardial effusion. Missy Plata MD, FACC (Electronically Signed) Final Date:13 June 2018 13:12
[2018-06-13 14:50] LABS: Free T4 (Free Thyroxine) 1.11 ng/dL (0.76-1.46); Thyroid Stimulating Hormone 0.865 uIU/mL (0.358-3.740)
[2018-06-13] MEDS ORDERED: Gadobutrol PF 10 MMOL/10 ML Vial (for RAD) IV.SIG ONE ×2 (14:56)
--- NOTE | 2018-06-13 15:24 | MR ---
EXAM DATE: 06/13/2018 3:20 PM EST AGE/SEX: 78 years / Female INDICATIONS: Vertigo. CLINICAL DATA: This is the patient's initial encounter. Patient reports that signs and symptoms have been present for 2 days and indicates a pain score of 2/10. MEDICAL/SURGICAL HISTORY: Hypertension. Cholecystectomy. Fusion, lumbar. ORIF left thigh. COMPARISON: [facility] [place], MR HEAD W & W/O CONTRAST, 06/13/2018. . TECHNIQUE: 3D [id number] MRA was performed. Source images, multiplanar STS MIP, and 3D volum e MIP reconstructions were reviewed. FINDINGS: Anterior Circulation: Intracranial Carotid Arteries: Patent. ANUSHA: There is no evidence for aneurysm, vessel truncation or stenosis, and no evidence for vascular m alformation. MCA: There is no evidence for aneurysm, vessel truncation or stenosis, and no evidence for vascular m alformation. Posterior Circulation: Distal Vertebral Arteries: Distal Vertebral arteries are symetrical and patent. Basilar Artery: There is no evidence for aneurysm, vessel truncation or stenosis, and no evidence for vascular malformation. PHARMACY DIRECTOR and Cerebellar Branches: Patent right P-comm. There is no evidence for aneurysm, vessel truncatio n or stenosis, and no evidence for vascular malformation. CONCLUSION: 1. Negative MRA Cow ([place]) non contrast. 2. Specifically, no significant hemodynamic stenosis in the posterior circulation. Electronically signed by: Samuel Oneil MD 06/13/2018 3:23 PM EST
--- NOTE | 2018-06-13 15:27 | MR ---
EXAM DATE: 06/13/2018 3:21 PM EST AGE/SEX: 78 years / Female INDICATIONS: Vertigo. CLINICAL DATA: This is the patient's initial encounter. Patient reports that signs and symptoms have been present for 2 days and indicates a pain score of 2/10. MEDICAL/SURGICAL HISTORY: Hypertension. Cholecystectomy. Fusion, lumbar. [place] [facility] [place]. . TECHNIQUE: Multiplanar, multisequence examination of the brain was performed without and with 10 ml Gadavist (gadobutrol) contrast as a single exam dose. FINDINGS: Cerebrum: The ventricles are normal for age. No evidence of midline shift, mass lesion, hemorrhage or acute infarction. No extraaxial fluid collections are seen. The pituitary gland and suprasellar cistern are normal in configuration. White Matter: No significant signal abnormalities are seen in the white matter. Posterior Fossa: The cerebellum and brainstem are intact. The 4th ventricle is midline. The cerebel lopontine angle is unremarkable. The cerebellar tonsils are normal in position. Diffusion Imaging: No focal areas of restricted diffusion are seen. No evidence of acute infarction . Extracranial: The visualized portions of the orbits and paranasal sinuses are unremarkable. Post Contrast: No abnormal areas of parenchymal or dural enhancement. No evidence of blood-brain ba rrier breakdown. CONCLUSION: 1. Negative MR Brain with and without contrast. 2. No evidence of acute infarct, hemorrhage, mass or edema. Electronically signed by: Prasad Patel MD 06/13/2018 3:26 PM EST
--- NOTE | 2018-06-13 15:32 | MR ---
EXAM DATE: 06/13/2018 3:23 PM EST AGE/SEX: 78 years / Female INDICATIONS: Stroke. CLINICAL DATA: This is the patient's initial encounter. Patient reports that signs and symptoms have been present for 2 days and indicates a pain score of 2/10. MEDICAL/SURGICAL HISTORY: Hypertension. Cholecystectomy. Fusion, lumbar. ORIF left femur. COMPARISON: [facility], CT CHEST W/O CONTRAST, 09/19/2017. . TECHNIQUE: 10 ml Gadavist (gadobutrol) contrast infused MRA (single exam dose) of the extracranial circulation was performed using a neurovascular coil. Postprocessing was performed, including rotati ng sub-volume maximum intensity projections of each carotid artery, rotating full-volume maximum inte nsity projections of both carotid arteries, sagittal and coronal sliding thin-slab reformations of ea ch carotid artery, and left oblique sliding thin-slab reformation through the aortic arch to include the origin of the arch branch vessels. FINDINGS: Aortic Arch : There is a three-vessel origin of the great vessels from the aorta. No evidence of o stial narrowing. Right Carotid : The common carotid artery is intact. The carotid bulb has a normal configuration wi thout ulceration or narrowing. The internal carotid artery lumen is smooth without stenosis. The ex ternal carotid artery is intact. Left Carotid : The common carotid artery is intact. The carotid bulb has a normal configuration wit hout ulceration or narrowing. The internal carotid artery lumen is smooth without stenosis. The ext ernal carotid artery is intact. Vertebrals : The vertebral arteries have a symmetric diameter. No stenotic lesions are seen. 3.7 cm cyst or mass is identified in the left thyroid lobe. CONCLUSION: 1. Negative MRA Carotids. 2. No evidence of significant atherosclerotic vascular disease, vasculopathy or steno-occlusive guillen ges. 3. 3.7 cm left thyroid lobe lesion stable compared to prior CT on 09/19/2017. Percent stenosis is calculated using the diameter of the stenotic region over the diameter of the nor mal distal internal carotid artery Electronically signed by: Prasad Patel MD 06/13/2018 3:31 PM EST
[2018-06-13] MEDS: Spironolactone 25 MG Tablet PO SCH (17:55)
--- NOTE | 2018-06-13 19:16 | ECG ---
Date Performed: 06/12/2018 Time Performed: 21:52:20 PTAGE: 78 years EKG: Sinus rhythm POSSIBLE LEFT ATRIAL ENLARGEMENT LEFT BUNDLE BRANCH BLOCK ABNORMAL ECG PRIOR ECG 06/12/2018 5.47: Sin ce the PREVIOUS TRACING , no significant change noted DOCTOR: Gualberto Urias Interpretating Date/Time 06/13/2018 19:15:52
--- NOTE | 2018-06-13 19:41 | ECG ---
Date Performed: 06/12/2018 Time Performed: 17:47:42 PTAGE: 78 years EKG: Sinus rhythm POSSIBLE LEFT ATRIAL ENLARGEMENT RIGHT BUNDLE BRANCH BLOCK ABNORMAL ECG PREVIOUS TRACING : 06/12/2018 11.58 Compared to previous tracing, RIGHT BUNDLE BRANCH BLOCK IS NEW DOCTOR: Gualberto Urias Interpretating Date/Time 06/13/2018 19:39:23
--- NOTE | 2018-06-13 20:07 | ECG ---
Date Performed: 06/12/2018 Time Performed: 11:58:34 PTAGE: 78 years EKG: Sinus rhythm POSSIBLE LEFT ATRIAL ENLARGEMENT MARKED LEFT AXIS DEVIATION LEFT BUNDLE BRANCH BLOCK ABNORMAL ECG DOCTOR: Gualberto Urias Interpretating Date/Time 06/13/2018 20:05:27
[2018-06-14] MEDS: Heparin - SQ 10,000 UNITS/ML Vial SQ SCH (06:16)
[2018-06-14 06:26] LABS: Anion Gap 7 meq/L (5-15); Blood Urea Nitrogen 14 mg/dL (7-18); Calcium 8.4 mg/dL (8.5-10.1); Carbon Dioxide 29.2 meq/L (21.0-32.0); Chloride 106 meq/L (98-107); Glomerular Filtration Rate Greater Than 89 mL/min (>89); Glucose,Random 99 mg/dL (74-106); Potassium 3.8 meq/L (3.5-5.1); Sodium 142 meq/L (136-145)
--- NOTE | 2018-06-14 07:13 | P.PNNEU ---
Subjective Subjective Comments: sr vff nl speech 5/5 Active Medications: Active Medications Acetaminophen (Tylenol) 650 mg PO Q4H PRN PRN Reason: HEADACHE Aspirin (Ecotrin) 81 mg PO DAILY [facility] Last Admin: 06/13/18 09:58 Dose: 81 mg Atorvastatin Calcium (Lipitor) 20 mg PO HS [facility] Last Admin: 06/13/18 21:19 Dose: 20 mg Carvedilol (Coreg) 3.125 mg PO BID [facility] Last Admin: 06/13/18 21:19 Dose: 3.125 mg Furosemide (Lasix) 20 mg PO DAILY [facility] Last Admin: 06/13/18 09:59 Dose: 20 mg Heparin Sodium (Porcine) (Heparin Inj) 5,000 units SQ Q8HR [facility] Last Admin: 06/14/18 06:16 Dose: 5,000 units Lisinopril (Prinivil) 2.5 mg PO DAILY [facility] Last Admin: 06/13/18 09:58 Dose: 2.5 mg Pantoprazole Sodium (Protonix) 20 mg PO DAILY [facility] Last Admin: 06/13/18 09:58 Dose: 20 mg Sodium Chloride (Ns Flush) 2 ml IV.FLUSH UNSCH PRN PRN Reason: FLUSH AFTER USING IV ACCESS Last Admin: 06/13/18 21:17 Dose: 2 ml Spironolactone (Aldactone) 25 mg PO BID@0900,1800 [facility] Last Admin: 06/13/18 17:55 Dose: 25 mg Allergies/Adverse Reactions: Allergies Allergy/AdvReac Type Severity Reaction Status Date / Time grass pollen Allergy Mild Sneezing Unverified 06/12/18 11:48 Physical Exam Vital signs: Vital Signs 06/13/18 07:34 06/13/18 08:00 06/13/18 12:00 Temperature 98.6 F 98.3 F Pulse Rate 80 94 H Respiratory Rate 12 16 Blood Pressure 161/72 H 168/79 H Pulse Oximetry 96 96 94 L 06/13/18 15:43 06/13/18 20:00 06/14/18 00:00 Temperature 98.6 F 98.3 F 98.0 F Pulse Rate 87 81 80 Respiratory Rate 16 17 14 Blood Pressure 142/69 H 154/67 H 122/59 L Pulse Oximetry 97 96 98 06/14/18 04:00 Temperature 97.7 F Pulse Rate 80 Respiratory Rate 14 Blood Pressure 167/72 H Pulse Oximetry 96 Intake & Output 06/13/18 06/14/18 06/14/18 18:59 06:59 18:59 Other: # Voids 3 Date of Last Bowel Movement 06/13/18 Objective Laboratory Results - last 24 hr 06/13/18 06/13/18 06/13/18 10:29 13:29 13:29 ESR 28 D-Dimer Quant (PE/DVT) 0.50 Sodium Potassium Chloride Carbon Dioxide Anion Gap BUN Creatinine Estimated GFR Random Glucose Calcium Vitamin B12 Greater than 2000 H TSH 0.865 Free T4 1.11 06/14/18 05:24 ESR D-Dimer Quant (PE/DVT) Sodium 142 Potassium 3.8 Chloride 106 Carbon Dioxide 29.2 Anion Gap 7 BUN 14 Creatinine 0.61 Estimated GFR Greater than 89 Random Glucose 99 Calcium 8.4 L Vitamin B12 TSH Free T4 Review/Management - Review/Management Plan: imp sr ech9o ef 30% mri/a/a nl esr nl ldl inc on statin ok by me to go home on asa 81mg and fu optho may have been retina or migraine variant should get cardionet o/p
[2018-06-14] MEDS: Lisinopril 5 MG Tablet PO SCH (09:16)
[2018-06-14] MEDS: Pantoprazole Sodium 20 MG DR Tablet PO SCH (09:16)
[2018-06-14] MEDS: Furosemide 20 MG Tablet PO SCH (09:16)
[2018-06-14] MEDS: Spironolactone 25 MG Tablet PO SCH (09:19)
[2018-06-14 09:58] LABS: Amorphous Sediment,Urine Occasional /hpf; Bacteria,Urine Moderate /hpf; Bilirubin,Urine Negative (Negative); Clarity,Urine Cloudy (Clear); Color,Urine Yellow (Yellw/Straw); Glucose,Urine (UA) Negative (Negative); Leukocyte Esterase,Urine Moderate (Negative); Mucus,Urine Few /lpf (Occasional); Nitrite,Urine Negative (Negative); Specific Gravity,Urine 1.023 (1.002-1.035); Squamous Epithelial Cell,Urine 1 /hpf (0-5)
--- NOTE | 2018-06-14 13:01 | P.PNCA ---
Subjective Interval history: Pt sitting up in bed, denies any complaints. No chest pain SOB improved, continues to have dizziness. Medications and Allergies Active Medications: Active Medications Acetaminophen (Tylenol) 650 mg PO Q4H PRN PRN Reason: HEADACHE Aspirin (Ecotrin) 81 mg PO DAILY [facility] Last Admin: 06/14/18 09:16 Dose: 81 mg Atorvastatin Calcium (Lipitor) 20 mg PO HS [facility] Last Admin: 06/13/18 21:19 Dose: 20 mg Carvedilol (Coreg) 3.125 mg PO BID [facility] Last Admin: 06/14/18 09:16 Dose: 3.125 mg Furosemide (Lasix) 20 mg PO DAILY [facility] Last Admin: 06/14/18 09:16 Dose: 20 mg Heparin Sodium (Porcine) (Heparin Inj) 5,000 units SQ Q8HR [facility] Last Admin: 06/14/18 06:16 Dose: 5,000 units Lisinopril (Prinivil) 2.5 mg PO DAILY [facility] Last Admin: 06/14/18 09:16 Dose: 2.5 mg Pantoprazole Sodium (Protonix) 20 mg PO DAILY [facility] Last Admin: 06/14/18 09:16 Dose: 20 mg Sodium Chloride (Ns Flush) 2 ml IV.FLUSH UNSCH PRN PRN Reason: FLUSH AFTER USING IV ACCESS Last Admin: 06/13/18 21:17 Dose: 2 ml Spironolactone (Aldactone) 25 mg PO BID@0900,1800 [facility] Last Admin: 06/14/18 09:19 Dose: 25 mg Allergies Allergy/AdvReac Type Severity Reaction Status Date / Time grass pollen Allergy Mild Sneezing Unverified 06/12/18 11:48 Home Medications Medication Instructions Recorded Confirmed Type Advil PM 200 mg ONCE HS 06/12/18 06/12/18 History Vitamin B-12 1,000 mcg DAILY 06/12/18 06/12/18 History fexofenadine [Arely Allergy] 180 mg PO DAILY 06/12/18 06/12/18 History melatonin 1 mg HS 06/12/18 06/12/18 History omeprazole 20 mg PO DAILY 06/12/18 06/12/18 History Physical Exam Vital signs: Vital Signs 06/13/18 15:43 06/13/18 20:00 06/14/18 00:00 Temperature 98.6 F 98.3 F 98.0 F Pulse Rate 87 81 80 Respiratory Rate 16 17 14 Blood Pressure 142/69 H 154/67 H 122/59 L Pulse Oximetry 97 96 98 06/14/18 04:00 06/14/18 07:19 06/14/18 09:01 Temperature 97.7 F 98.2 F Pulse Rate 80 89 73 Respiratory Rate 14 18 Blood Pressure 167/72 H 157/68 H Pulse Oximetry 96 98 Intake & Output 06/13/18 06/14/18 06/14/18 18:59 06:59 18:59 Other: # Voids 3 Date of Last Bowel Movement 06/13/18 - Constitutional no acute distress, obese - Routine HEENT Exam Head: Present: normocephalic, atraumatic Eye: Present: EOMI, PERRL, normal accommodation ENT: Present: mucous membranes moist - Routine Neck Exam Present: supple - Routine Respiratory Exam Present: CTA bilaterally - Routine Cardiovascular Exam Present: RRR - Routine Abdominal Exam Present: soft - Routine Skin Exam Present: intact - Routine Neurological Exam Present: alert, oriented X3 - Detailed Neurological Exam: Coma Scale Eye Opening: Spontaneous Verbal Response: Oriented Motor Response: Obey commands Lou Coma Scale Total: 15 - Routine Psychiatric Exam Present: normal affect Results 06/12/18 12:10 06/14/18 05:24 Cardiac Enzymes 06/12/18 06/12/18 06/12/18 Range/Units 12:10 17:50 23:42 Troponin I Less than 0.02 L Less than 0.02 L (0.02-0.05) ng/mL B-Natriuretic Peptide 243 H (0-100) pg/mL Coagulation 06/12/18 Range/Units 12:10 B-Natriuretic Peptide 243 H (0-100) pg/mL Lipids 06/12/18 Range/Units 12:10 Triglycerides 179 H (42-150) mg/dL Cholesterol 222 H (120-200) mg/dL HDL Cholesterol 76.9 H (40.0-60.0) mg/dL Cholesterol/HDL Ratio 2.88 Ratio Comprehensive Metabolic Panel 06/14/18 Range/Units 05:24 Sodium 142 (136-145) meq/L Potassium 3.8 (3.5-5.1) meq/L Chloride 106 (98-107) meq/L Carbon Dioxide 29.2 (21.0-32.0) meq/L BUN 14 (7-18) mg/dL Creatinine 0.61 (0.50-1.00) mg/dL Calcium 8.4 L (8.5-10.1) mg/dL Intake and Output 06/13/18 06/14/18 06/14/18 22:59 06:59 14:59 Other: # Voids 3 - Imaging and Cardiology Imaging: Impressions Neck MRA 06/13/18 00:00 CONCLUSION: 1. Negative MRA Carotids. 2. No evidence of significant atherosclerotic vascular disease, vasculopathy or steno-occlusive changes. 3. 3.7 cm left thyroid lobe lesion stable compared to prior CT on 09/19/2017. Percent stenosis is calculated using the diameter of the stenotic region over the diameter of the normal distal internal carotid artery Head MRI 06/13/18 10:52 CONCLUSION: 1. Negative MR Brain with and without contrast. 2. No evidence of acute infarct, hemorrhage, mass or edema. Head MRA 06/13/18 10:52 CONCLUSION: 1. Negative MRA Cow ([place]) non contrast. 2. Specifically, no significant hemodynamic stenosis in the posterior circulation. Assessment and Plan - Plan Assessment Chest pain Shortness of breath Cardiomyopathy Aortic stenosis Dizziness/loss of vision Hypertension Hyperlipidemia Plan -Troponins negative x3, chest discomfort improved at this a.m. Will consider stress test outpatient. Plan to follow up in office in 1-2 weeks. -EF low, will DC home on BB, BIJAL, lasix and aldactone. Will do stress test outpatient. Discussed the possibility of ICD down the road. -Moderate aortic stenosis noted [facility] echo [facility], repeat echo ordered today. -Continues to have dizziness, also had episode of loss of vision. She has been evaluated by neuro. Will continue baby ASA. -Continue statin. Will see in office in 1-2 weeks. The patient was seen and evaluated by Dr. Mitchell who participated in care management decision making. Code Status: Full Code Discussed Condition With: RN, Dr. Mitchell and Dr. Velázquez.
--- NOTE | 2018-06-14 13:04 | P.DS ---
Date of admission: 06/12/18 14:55 Primary care physician: John Mercer MD Brief History from admission: HPI as documented by the admitting physician: 78-year-old white female being admitted for exertional dyspnea, referred to the emergency department by her delinquency counselor today. Case discussed with ER physician. Patient was in her usual state of health until about 1 month ago when she had a bout of intense lightheadedness at [employer] when she spun around to talk to someone. Since then she has had some lingering lightheadedness here and there but more concerning she has had exertional dyspnea which has progressed in intensity. Says she used to be able to walk down to her driveway now she is unable to do that without having to stop to catch her breath. She even thinks that she has conversational dyspnea although she does not appear to have any difficulty talking to me at this time at the bedside. She said she went to her primary care doctor about a week and a half after the initial incident and had an echocardiogram performed the results of which she does not know in detail. She also reports having ultrasound of her neck done which apparently was okay as well. She saw cardiology for the first time today and was instructed to come to the emergency department in light of her worsening exertional dyspnea. Patient reports having a pressure-like feeling which she describes as also burning sensation but says it's no "painful." Says that she has a mild pain very intermittent only over the left pectoral region which worsens with deep inspiration. Patient was seen by delinquency counselor today and was advised to proceed to the emergency department, for possible acute ischemic workup. In the emergency department chest x-ray performed which which I independently reviewed which demonstrated scoliosis but no acute findings in the lung regal[place]. BNP is only in the 200s. Troponins are negative. EKG which I independently reviewed shows no acute findings concerning for ischemia or infarction, only left bundle. Patient update on day of discharge: Patient reports she is feeling well today. Denies chest pain or dizziness. DS: Medications - Discharge Medications Prescriptions: aspirin 81 mg PO DAILY #30 tab atorvastatin 20 mg PO HS #30 tab carvedilol [Coreg] 3.125 mg PO BID #60 tab furosemide 20 mg PO DAILY #30 tab lisinopril 2.5 mg PO DAILY #30 tab spironolactone [Aldactone] 25 mg PO BID@0900,1800 #60 tab DS: Summary Hospital Course: 78-year-old white female admitted for exertional dyspnea. Hemodynamically stable upon admission. Patient also reported ongoing lightheadedness. Patient found to have congestive heart failure: Exertional dyspnea secondary to acute systolic CHF: -Cardiology followed the patient. 2D echocardiogram revealed LVEF of 30-35%. The patient was started on Lasix, Coreg, spironolactone, and lisinopril. -She will follow-up outpatient with cardiology. Heart failure teaching provided. Hyperlipidemia: -Patient started on statin. Dizziness: Patient reports this initially started after she she suddenly turned her head and had an episode of visual disturbances. -Appreciate neurology input. MRI of the brain, MRA of the neck and [place] all negative. Per neurology recommendations, she can follow-up outpatient with ophthalmology for evaluation. Heart failure could be contributing. - Time Spent with Patient Total time spent providing and/or coordinating discharge services: Greater than 30 minutes - Quality: VTE Deep Vein Thrombosis/Pulmonary Embolism Present on Admission: No Exam Vital signs: Vital Signs 06/13/18 15:43 06/13/18 20:00 06/14/18 00:00 Temperature 98.6 F 98.3 F 98.0 F Pulse Rate 87 81 80 Respiratory Rate 16 17 14 Blood Pressure 142/69 H 154/67 H 122/59 L Pulse Oximetry 97 96 98 06/14/18 04:00 06/14/18 07:19 06/14/18 09:01 Temperature 97.7 F 98.2 F Pulse Rate 80 89 73 Respiratory Rate 14 18 Blood Pressure 167/72 H 157/68 H Pulse Oximetry 96 98 Intake & Output 06/13/18 06/14/18 06/14/18 18:59 06:59 18:59 Other: # Voids 3 Date of Last Bowel Movement 06/13/18 Narrative: GENERAL: This is a well-nourished, well-developed patient, in no apparent distress. CARDIOVASCULAR: Normal rate and regular rhythm without murmurs, gallops, or rubs. RESPIRATORY: Good respiratory efforts. Breath sounds equal and clear to auscultation bilaterally. GASTROINTESTINAL: Abdomen soft, non-tender, non-distended. Normal active bowel sounds MUSCULOSKELETAL: Extremities without cyanosis, or edema. NEURO: Alert & Oriented x4 to person, place, time, situation. Moves all ext x4 PSYCH: Appropriate mood and affect. Results Procedures completed during hospitalization: None Labs on day of discharge: Labs from last 24 hours 06/14/18 06/14/18 06/13/18 09:12 05:24 13:29 ESR Sodium 142 Potassium 3.8 Chloride 106 Carbon Dioxide 29.2 Anion Gap 7 BUN 14 Creatinine 0.61 Estimated GFR Greater than 89 Random Glucose 99 Calcium 8.4 L Vitamin B12 TSH Free T4 Urine Color Yellow Urine Clarity Cloudy H Urine pH 5.0 Ur Specific [place] 1.023 Urine Protein Negative Urine Glucose (UA) Negative Urine Ketones Negative Urine Occult Blood Negative Urine Nitrate Negative Urine Bilirubin Negative Urine Urobilinogen 2.0 H Ur Leukocyte Esterase Moderate H Urine RBC 2 Urine WBC 38 H Ur Squamous Epith Cells 1 Amorphous Sediment Occasional H Urine Bacteria Moderate H Urine Mucus Few H Micro UA Comment Culture indicated Ur Microscopic Review Not Reportable Urine Culture Comments Culture indicated MARGA Screen Pending 06/13/18 06/13/18 13:29 13:29 ESR 28 Sodium Potassium Chloride Carbon Dioxide Anion Gap BUN Creatinine Estimated GFR Random Glucose Calcium Vitamin B12 Greater than 2000 H TSH 0.865 Free T4 1.11 Urine Color Urine Clarity Urine pH Ur Specific [place] Urine Protein Urine Glucose (UA) Urine Ketones Urine Occult Blood Urine Nitrate Urine Bilirubin Urine Urobilinogen Ur Leukocyte Esterase Urine RBC Urine WBC Ur Squamous Epith Cells Amorphous Sediment Urine Bacteria Urine Mucus Micro UA Comment Ur Microscopic Review Urine Culture Comments MARGA Screen - Impressions ITS Impressions Chest X-Ray 06/12/18 12:11 CONCLUSION: No acute cardiopulmonary disease. Neck MRA 06/13/18 00:00 CONCLUSION: 1. Negative MRA Carotids. 2. No evidence of significant atherosclerotic vascular disease, vasculopathy or steno-occlusive changes. 3. 3.7 cm left thyroid lobe lesion stable compared to prior CT on 09/19/2017. Percent stenosis is calculated using the diameter of the stenotic region over the diameter of the normal distal internal carotid artery Head MRI 06/13/18 10:52 CONCLUSION: 1. Negative MR Brain with and without contrast. 2. No evidence of acute infarct, hemorrhage, mass or edema. Head MRA 06/13/18 10:52 CONCLUSION: 1. Negative MRA Cow ([place] of [place]) non contrast. 2. Specifically, no significant hemodynamic stenosis in the posterior circulation. Discharge Plan - Discharge Disposition Patient Disposition: 01 Discharge Home - Discharge Condition Condition: Stable - Discharge Order Discharge Orders: Discharge Order (Routine); Ordered 06/14/18 Ordered By: Lavell Velázquez Cardiology Clear for Discharge (Routine); Ordered 06/14/18 Ordered By: Paige Gonzalez - Physicians Team Primary Care Provider: John Mercer Attending Provider: Lavell Velázquez Other Providers: Daphnie Mitchell MD ; Osvaldo Pichardo MD
[2018-06-14 16:21] VITALS: BP 125/77; PULSE 118; RESP 20; TEMP 98.1; O2SAT 96
[2018-06-15 15:36] LABS: Anti-Nuclear Antibody Screen Pos (Neg)
[2018-06-18 14:53] LABS: Anti-Nuclear Antibody Pattern Speckled
== END 2018-06-14 16:31 | disposition home or self-care (01) ==
LOC: NEDA 11:38 → NEPE 11:38 → NEPFCDU 17:53
PROVIDERS: ADMIT Family Medicine; ATTEND Family Medicine